=== PATIENT | female | born 1950 | race African-American/Black ===

== ENCOUNTER 2021-07-23 16:39 | Inpatient (IN) ==
[2021-07-23 18:01] LABS: Basophils % 0.5 % (0.0-0.8); Eosinophils # 0.1 10*3/uL (0.0-0.87); Eosinophils % 1.7 % (0.00-10.9); Hematocrit 31.4 VOL% (35.7-47.0); Hemoglobin 10.4 GM/DL (12.0-16.0); Immature Granulocytes % 0.3 %; Immature Granulocytes Absolute 0.02 #; Lymphocytes # 1.5 10*3/uL (1.4-4.0); Mean Corpuscular HGB Conc 33.1 GM/DL (32-36); Mean Corpuscular Volume 87.5 FL (87-102); Mean Platelet Volume 13.8 FL (9.6-12.0); Monocytes # 0.5 10*3/uL (0.11-0.8); Monocytes % 8.6 % (1.7-12.7); Neutrophils % 64.9 % (38.7-73.9); Platelet Count 142 T/CUMM (130-400); Red Blood Count 3.59 MC/CUMM (3.8-5.5); Red Cell Distribution Width 14.3 % (9.3-17.3)
[2021-07-23 18:09] LABS: Alanine Aminotransferase 18 U/L (13-56); Albumin 3.2 G/DL (3.4-5.0); Alkaline Phosphatase 95 U/L (45-117); Aspartate Amino Transferase 22 U/L (0-37); Bilirubin,Total < 0.39 MG/DL (0.20-1.00); Blood Urea Nitrogen 21 MG/DL (7-18); Carbon Dioxide 26 MMOL/L (21-32); Chloride 112 MMOL/L (98-107); Glucose 106 MG/DL (74-106); Potassium 3.7 MMOL/L (3.5-5.1); Sodium 143 MMOL/L (136-145); Total Protein 7.3 G/DL (6.4-8.2)
[2021-07-23 18:11] LABS: PT Patient Result 10.8 SECS (10.5-12.0); Partial Thromboplastin Time 24.9 SECS (23.8-32.1)
[2021-07-23 18:40] LABS: Platelet Estimate Decreased
[2021-07-23] MEDS ORDERED: ZALEPLON 5 MG CAPSULE PO PRN (19:25)
[2021-07-23] MEDS ORDERED: DEXTROSE 50% 25 GM/50 ML VIAL IV PRN (19:25)
[2021-07-23] MEDS ORDERED: ACETAMINOPHEN 325 MG TABLET PO PRN (19:25)
[2021-07-23] MEDS ORDERED: GLUCAGON 1 MG VIAL IM PRN ×2 (19:25)
[2021-07-23] MEDS ORDERED: hydrALAZINE 20 MG/1 ML VIAL IV PRN (19:25)
[2021-07-23] MEDS ORDERED: ONDANSETRON 4 MG/2 ML VIAL IV PRN (19:25)
[2021-07-23] MEDS ORDERED: DEXTROSE 10% 250 ML BAG IV PRN (19:41)
[2021-07-23 19:56] LABS: Folate 7.58 NG/ML (5.38-24.0)
[2021-07-23 19:57] LABS: % Iron Saturation 17.3 % (18-50)
[2021-07-23] MEDS ORDERED: ATORVASTATIN 40 MG TABLET PO SCH (21:00)
[2021-07-23] MEDS: ENOXAPARIN 40 MG/0.4 ML SYRINGE SUBCUT SCH (21:22)
[2021-07-23] MEDS: INSULIN REGULAR 100 UNIT/ML SUBCUT SCH (21:22)
[2021-07-23] MEDS: carvediloL 6.25 MG TABLET PO SCH (21:22)
[2021-07-23 23:10] LABS: Bacteria,Urine Occasional /HPF (Few); Squamous Epithelial Cell,Urine Occasional /HPF (0-10)
[2021-07-23 23:19] LABS: Urine Appearance Clear (Clear); Urine Color Yellow (Yellow); Urine Specific Gravity 1.015 (1.001-1.035); Urine pH 5.5 (4.5-8.0)
[2021-07-23 23:20] LABS: Bilirubin,Urine Negative (Negative); Blood, Urine Negative (Negative); Glucose,Urine (UA) Negative (Negative); Ketones,Urine Negative (Negative); Nitrite,Urine Positive (Negative); Protein,Urine Trace mg/dL (Negative); Urine Urobilinogen 0.2 eU/dL (<2.0)
[2021-07-23 23:27] LABS: Barbiturates Screen,Urine Negative (Negative); Benzodiazepines Screen,Urine Negative (Negative); Cannabinoid Screen,Urine Negative (Negative); Opiate Screen,Urine Negative (Negative); Phencyclidine Screen,Urine Negative (Negative)
[2021-07-24] MEDS: cefTRIAXone 1,000 MG in SODIUM CHLORIDE 0.9% 100 ML IV SCH (04:20)
[2021-07-24 06:16] LABS: Basophils % 0.6 % (0.0-0.8); Eosinophils # 0.1 10*3/uL (0.0-0.87); Eosinophils % 1.9 % (0.00-10.9); Hematocrit 30.2 VOL% (35.7-47.0); Hemoglobin 10.1 GM/DL (12.0-16.0); Immature Granulocytes % 0.2 %; Immature Granulocytes Absolute 0.01 #; Lymphocytes # 1.3 10*3/uL (1.4-4.0); Lymphocytes % 23.6 % (21.3-54.2); Mean Corpuscular HGB Conc 33.4 GM/DL (32-36); Mean Corpuscular Volume 87.3 FL (87-102); Mean Platelet Volume 14.1 FL (9.6-12.0); Monocytes # 0.4 10*3/uL (0.11-0.8); Monocytes % 7.3 % (1.7-12.7); Neutrophils % 66.4 % (38.7-73.9); Platelet Count 129 T/CUMM (130-400); Red Blood Count 3.46 MC/CUMM (3.8-5.5); Red Cell Distribution Width 14.5 % (9.3-17.3); White Blood Count 5.4 T/CUMM (4-12)
[2021-07-24 06:40] LABS: Alanine Aminotransferase 16 U/L (13-56); Albumin 2.7 G/DL (3.4-5.0); Alkaline Phosphatase 79 U/L (45-117); Aspartate Amino Transferase 18 U/L (0-37); Bilirubin,Total < 0.39 MG/DL (0.20-1.00); Blood Urea Nitrogen 24 MG/DL (7-18); Calcium 8.1 MG/DL (8.5-10.1); Carbon Dioxide 24 MMOL/L (21-32); Chloride 114 MMOL/L (98-107); Cholesterol 159 MG/DL (50-200); Glucose 168 MG/DL (74-106); HDL Cholesterol 57 MG/DL (40-60); Potassium 3.7 MMOL/L (3.5-5.1); Risk Ratio 2.79; Sodium 143 MMOL/L (136-145); Total Protein 7.1 G/DL (6.4-8.2); Triglycerides 108 MG/DL (2-150); VLDL Cholesterol 21.6 MG/DL
[2021-07-24] MEDS: INSULIN REGULAR 100 UNIT/ML SUBCUT SCH ×4 (08:20→20:59)
[2021-07-24] MEDS: carvediloL 6.25 MG TABLET PO SCH ×2 (08:25→17:32)
[2021-07-24] MEDS ORDERED: LORazepam 2 MG/1 ML VIAL IV ONE (09:30)
[2021-07-24] MEDS ORDERED: PANTOPRAZOLE 40 MG TABLET PO SCH (11:30)
[2021-07-24] MEDS ORDERED: carvediloL 25 MG TABLET PO SCH (11:30)
[2021-07-24] MEDS: ASPIRIN 325 MG TABLET PO SCH (11:49)
[2021-07-24] MEDS: MULTIVITAMIN (CENTRUM) TABLET PO SCH (11:49)
[2021-07-24] MEDS: FOLIC ACID 1 MG TABLET PO SCH (11:50)
[2021-07-24] MEDS: THIAMINE 100 MG TABLET PO SCH (11:50)
[2021-07-24] MEDS: PANTOPRAZOLE 40 MG TABLET PO SCH (11:50)
[2021-07-24] MEDS: allopurinoL 100 MG TABLET PO SCH (11:50)
[2021-07-24] MEDS: CITALOPRAM 20 MG TABLET PO SCH (11:59)
[2021-07-24] MEDS: ENOXAPARIN 40 MG/0.4 ML SYRINGE SUBCUT SCH (20:58)
[2021-07-24] MEDS: ATORVASTATIN 20 MG TABLET PO SCH (20:58)
[2021-07-25] MEDS: cefTRIAXone 1,000 MG in SODIUM CHLORIDE 0.9% 100 ML IV SCH (03:59)
[2021-07-25] MEDS: PANTOPRAZOLE 40 MG TABLET PO SCH (09:00)
[2021-07-25] MEDS: CITALOPRAM 20 MG TABLET PO SCH (09:00)
[2021-07-25] MEDS: ASPIRIN 325 MG TABLET PO SCH (09:00)
[2021-07-25] MEDS: allopurinoL 100 MG TABLET PO SCH (09:00)
[2021-07-25] MEDS: MULTIVITAMIN (CENTRUM) TABLET PO SCH (09:01)
[2021-07-25] MEDS: THIAMINE 100 MG TABLET PO SCH (09:01)
[2021-07-25] MEDS: FOLIC ACID 1 MG TABLET PO SCH (09:01)
[2021-07-25] MEDS: carvediloL 6.25 MG TABLET PO SCH (09:01)
[2021-07-25] MEDS: INSULIN REGULAR 100 UNIT/ML SUBCUT SCH ×4 (09:05→20:17)
[2021-07-25] MEDS: carvediloL 12.5 MG TABLET PO SCH (16:30)
[2021-07-25] MEDS: ATORVASTATIN 20 MG TABLET PO SCH (20:17)
[2021-07-25] MEDS: ENOXAPARIN 40 MG/0.4 ML SYRINGE SUBCUT SCH (20:17)
[2021-07-26] MEDS: cefTRIAXone 1,000 MG in SODIUM CHLORIDE 0.9% 100 ML IV SCH (03:10)
[2021-07-26 05:16] LABS: Basophils % 0.3 % (0.0-0.8); Eosinophils # 0.1 10*3/uL (0.0-0.87); Eosinophils % 1.9 % (0.00-10.9); Hemoglobin 10.2 GM/DL (12.0-16.0); Immature Granulocytes % 0.2 %; Immature Granulocytes Absolute 0.01 #; Lymphocytes # 1.4 10*3/uL (1.4-4.0); Lymphocytes % 22.5 % (21.3-54.2); Mean Corpuscular HGB Conc 32.9 GM/DL (32-36); Mean Corpuscular Volume 87.6 FL (87-102); Monocytes # 0.5 10*3/uL (0.11-0.8); Monocytes % 7.7 % (1.7-12.7); Neutrophils % 67.4 % (38.7-73.9); Platelet Count 124 T/CUMM (130-400); Red Blood Count 3.54 MC/CUMM (3.8-5.5); Red Cell Distribution Width 14.6 % (9.3-17.3); White Blood Count 6.4 T/CUMM (4-12)
[2021-07-26 05:29] LABS: Calcium 8.3 MG/DL (8.5-10.1); Osmolality,Calculated 287.3 MOS/KG (273-304); Potassium 3.6 MMOL/L (3.5-5.1)
[2021-07-26] MEDS: INSULIN REGULAR 100 UNIT/ML SUBCUT SCH ×3 (09:59→15:48)
[2021-07-26] MEDS: carvediloL 12.5 MG TABLET PO SCH (10:22)
[2021-07-26] MEDS: CITALOPRAM 20 MG TABLET PO SCH (10:22)
[2021-07-26] MEDS: ASPIRIN 325 MG TABLET PO SCH (10:22)
[2021-07-26] MEDS: MULTIVITAMIN (CENTRUM) TABLET PO SCH (10:22)
[2021-07-26] MEDS: FOLIC ACID 1 MG TABLET PO SCH (10:23)
[2021-07-26] MEDS: allopurinoL 100 MG TABLET PO SCH (10:23)
[2021-07-26] MEDS: THIAMINE 100 MG TABLET PO SCH (10:23)
[2021-07-26] MEDS: PANTOPRAZOLE 40 MG TABLET PO SCH (10:23)
[2021-07-26] MEDS ORDERED: ERTAPENEM 1,000 MG in SODIUM CHLORIDE 0.9% 100 ML IV SCH (12:00)
[2021-07-26 15:58] VITALS: BP 185/96
== END 2021-07-26 17:05 | disposition home health service (06) | DRG 69 ==
LOC: N.EDINP 16:39 → N.ED 16:39 → N.EDINP 07-24 09:37 → N.5E 07-24 11:09 → SUATTDRO 07-24 11:19
PROVIDERS: ADMIT Internal Medicine; ATTEND Internal Medicine